=== PATIENT | male | born 1965 | race Caucasian/White ===

== ENCOUNTER 2019-06-13 15:45 | Outpatient (CLI) | payer MEDICAID, SELFPAY ==
[2019-06-13 16:19] LABS: Abs Immature Grans 0.02 k/cumm (0.0-0.09); Absolute Basophil Count 0.03 k/cumm (0.0-0.2); Absolute Eosinophil Count 0.14 k/cumm (0.0-0.7); Absolute Lymphocyte Count 0.47 k/cumm (1.2-3.4); Absolute Monocyte Count 0.53 k/cumm (0.11-0.7); Absolute Neutrophil Count 3.83 k/cumm (1.2-6.7); Basophils % 0.6; Eosinophils % 2.8; HGB 15.6 g/dL (13.5-17.5); Immature Grans % 0.4; Lymphocytes % 9.4; Mean Corp. HGB Concentration 33.9 g/dL (32.0-36.0); Mean Corpuscular Hemoglobin 28.3 pg (27.0-33.0); Mean Corpuscular Volume 83.5 fL (80-95); Mean Platelet Volume 9.9 fL (8.0-11.0); Monocytes % 10.6; Neutrophils % 76.2; Platelet Count 289 x1000/uL (130-400); RBC 5.51 m/cumm (4.50-6.00); RBC Distribution Width 14.4 % (11.8-14.1); White Blood Cell Count 5.02 k/cumm (4.4-10.8)
[2019-06-13 17:28] LABS: ALT 361 U/L (16-63); AST 115 U/L (15-37); Albumin 3.9 g/dL (3.4-5.0); Alkaline Phosphatase 304 U/L (46-116); Anion Gap 10.4 mmol/L (3-11); BUN 11 mg/dL (7-18); Bilirubin, Total 1.1 mg/dL (0.2-1.0); CO2 27.6 mmol/L (21.0-32.0); CREATININE 1.15 mg/dL (0.70-1.30); Calcium 9.6 mg/dL (8.5-10.1); Chloride 96 mmol/L (98-107); Glucose 133 mg/dL (70-100); Sodium 134 mmol/L (136-145); Total Protein 7.4 g/dL (6.4-8.2)
== END 2019-06-13 16:05 ==
PROVIDERS: PCP Nurse Practitioner Family; Visit Provider Internal Medicine Hospice and Palliative Medicine
DX: C43.59 Malignant melanoma of other part of trunk (principal)
CPT/HCPCS: 36415; 80053; 85025

== ENCOUNTER 2019-06-17 10:12 | Outpatient (CLI) | payer MEDICAID, SELFPAY ==
[2019-06-17 10:47] LABS: ALT 377 U/L (16-63); AST 93 U/L (15-37); Albumin 3.3 g/dL (3.4-5.0); Alkaline Phosphatase 441 U/L (46-116); Anion Gap 12.1 mmol/L (3-11); BUN 14 mg/dL (7-18); Bilirubin, Total 0.7 mg/dL (0.2-1.0); CO2 24.9 mmol/L (21.0-32.0); Chloride 98 mmol/L (98-107); Glucose 234 mg/dL (70-100); Potassium 4.4 mmol/L (3.5-5.1); Sodium 135 mmol/L (136-145); Total Protein 7.1 g/dL (6.4-8.2)
== END 2019-06-17 10:32 ==
PROVIDERS: PCP Nurse Practitioner Family; Visit Provider Internal Medicine Hospice and Palliative Medicine
DX: C43.59 Malignant melanoma of other part of trunk (principal)
CPT/HCPCS: 36415; 80053

== ENCOUNTER 2019-06-20 11:25 | Outpatient (CLI) | payer MEDICAID, SELFPAY ==
[2019-06-20 12:06] LABS: ALT 208 U/L (16-63); AST 18 U/L (15-37); Albumin 3.6 g/dL (3.4-5.0); Alkaline Phosphatase 313 U/L (46-116); Anion Gap 10.9 mmol/L (3-11); BUN 11 mg/dL (7-18); Bilirubin, Total 0.5 mg/dL (0.2-1.0); CO2 24.1 mmol/L (21.0-32.0); CREATININE 0.86 mg/dL (0.70-1.30); Calcium 8.9 mg/dL (8.5-10.1); Chloride 100 mmol/L (98-107); Glucose 314 mg/dL (70-100); Potassium 4.2 mmol/L (3.5-5.1); Sodium 135 mmol/L (136-145); Total Protein 7.4 g/dL (6.4-8.2)
== END 2019-06-20 11:45 ==
PROVIDERS: PCP Nurse Practitioner Family; Visit Provider Internal Medicine Hospice and Palliative Medicine
DX: C43.59 Malignant melanoma of other part of trunk (principal)
CPT/HCPCS: 36415; 80053

== ENCOUNTER 2019-06-30 11:30 | Outpatient (CLI) | payer MEDICAID, SELFPAY ==
[2019-06-30 13:19] LABS: ALT 59 U/L (16-63); AST 21 U/L (15-37); Albumin 3.7 g/dL (3.4-5.0); Alkaline Phosphatase 169 U/L (46-116); BUN 19 mg/dL (7-18); Bilirubin, Total 0.4 mg/dL (0.2-1.0); Calcium 9.1 mg/dL (8.5-10.1); Chloride 97 mmol/L (98-107); Glucose 443 mg/dL (70-100); Sodium 133 mmol/L (136-145); Total Protein 7.1 g/dL (6.4-8.2)
== END 2019-06-30 11:50 ==
PROVIDERS: PCP Nurse Practitioner Family; Visit Provider Internal Medicine Hospice and Palliative Medicine
DX: C43.59 Malignant melanoma of other part of trunk (principal)
CPT/HCPCS: 36415; 80053

== ENCOUNTER 2019-07-07 11:19 | Outpatient (CLI) | payer MEDICAID, SELFPAY ==
[2019-07-07 12:12] LABS: Abs Immature Grans 0.11 k/cumm (0.0-0.09); Absolute Basophil Count 0.03 k/cumm (0.0-0.2); Absolute Eosinophil Count 0.34 k/cumm (0.0-0.7); Absolute Lymphocyte Count 0.97 k/cumm (1.2-3.4); Absolute Monocyte Count 0.69 k/cumm (0.11-0.7); Absolute Neutrophil Count 5.25 k/cumm (1.2-6.7); Basophils % 0.4; Eosinophils % 4.6; HCT 45.2 % (40.0-50.0); HGB 15.4 g/dL (13.5-17.5); Immature Grans % 1.5; Lymphocytes % 13.1; Mean Corp. HGB Concentration 34.1 g/dL (32.0-36.0); Mean Corpuscular Hemoglobin 28.6 pg (27.0-33.0); Mean Platelet Volume 9.7 fL (8.0-11.0); Monocytes % 9.3; Neutrophils % 71.1; Platelet Count 232 x1000/uL (130-400); RBC 5.38 m/cumm (4.50-6.00); RBC Distribution Width 14.6 % (11.8-14.1); White Blood Cell Count 7.39 k/cumm (4.4-10.8)
[2019-07-07 12:23] LABS: ALT 90 U/L (16-63); AST 45 U/L (15-37); Albumin 3.6 g/dL (3.4-5.0); Alkaline Phosphatase 172 U/L (46-116); Anion Gap 11.7 mmol/L (3-11); BUN 18 mg/dL (7-18); Bilirubin, Total 0.4 mg/dL (0.2-1.0); CO2 25.3 mmol/L (21.0-32.0); CREATININE 0.98 mg/dL (0.70-1.30); Calcium 9.1 mg/dL (8.5-10.1); Chloride 98 mmol/L (98-107); Glucose 401 mg/dL (70-100); LDH 150 U/L (85-227); Potassium 4.2 mmol/L (3.5-5.1); Sodium 135 mmol/L (136-145); Total Protein 7.3 g/dL (6.4-8.2)
== END 2019-07-07 11:39 ==
PROVIDERS: PCP Nurse Practitioner Family; Visit Provider Internal Medicine Hospice and Palliative Medicine
DX: C78.7 Secondary malignant neoplasm of liver and intrahepatic bile duct (principal); C43.59 Malignant melanoma of other part of trunk
CPT/HCPCS: 36415; 80053; 83615; 85025

== ENCOUNTER 2023-07-24 16:17 | Outpatient (REF) | payer MEDICAID, SELFPAY ==
[2023-07-24 15:54] LABS: ALT 49 U/L (16-63); AST 27 U/L (15-37); Albumin 4.6 g/dL (3.4-5.0); Alkaline Phosphatase 160 U/L (46-116); Anion Gap 13.7 mmol/L (3-11); BUN 15 mg/dL (7-18); Bilirubin, Total 0.7 mg/dL (0.2-1.0); CO2 22.3 mmol/L (21.0-32.0); CREATININE 0.9 mg/dL (0.70-1.30); Calcium 10.5 mg/dL (8.5-10.1); Chloride 100 mmol/L (98-107); Estimated GFR 100.86 (mL/min/1.73m2); Glucose 188 mg/dL (74-106); Potassium 4.2 mmol/L (3.5-5.1); Sodium 136 mmol/L (136-145); TSH (W/Ref FT4) 1.74 uIU/mL (0.36-3.74); Total Protein 8.7 g/dL (6.4-8.2)
== END 2023-07-24 16:18 | disposition home or self-care (01) ==
LOC: NCHCN 16:17
PROVIDERS: PCP Nurse Practitioner Family; Visit Provider Family Medicine
DX: E03.9 Hypothyroidism, unspecified (principal); E11.9 Type 2 diabetes mellitus without complications
CPT/HCPCS: 80053; 84443